=== PATIENT | male | born 1990 | race Caucasian/White ===

== ENCOUNTER 2020-02-07 17:34 | Emergency (ER) | payer BC, SELFPAY ==
[2020-02-07 17:41] VITALS: BP 128/72; PULSE 81; RESP 18; TEMP 37.2; O2SAT 99
--- NOTE | 2020-02-07 17:51 | ED.SKABFB ---
HPI - Skin/Abscess/Foreign Bdy General Chief complaint: Skin/Abscess/Foreign Body Stated complaint: yellow jacket stings reaction neck Time Seen by Provider: 02/07/20 17:55 Source: patient and RN notes reviewed Mode of arrival: ambulatory Limitations: no limitations History of Present Illness HPI narrative: 29-year-old male presents with concern for wasp sting. Reports 2 stings on his scalp, and a sting on the front side of his neck. Reports he took 2 Benadryl prior to arrival, reports he generally has a lot of swelling when he gets done. He denies any history of anaphylactic reaction to stings. Denies current wheezing, difficulty breathing, swollen lips, swollen tongue, nausea, vomiting, diarrhea, fever MD complaint: insect bite/sting Related Data Home Medications Medication Instructions Recorded Confirmed No Home Medications 02/07/20 02/07/20 Allergies Allergy/AdvReac Type Severity Reaction Status Date / Time No Known Allergies Allergy Verified 02/07/20 17:55 Review of Systems Review of Systems: Narrative: CONSTITUTIONAL: Denies malaise, chills, sweats, or fever. EYES: Denies visual changes, redness, or discharge. ENT: Denies swollen lips, swollen tongue, difficulty swallowing CARDIOVASCULAR: Denies chest pain, palpitations, or edema. RESPIRATORY: Denies cough or dyspnea. GASTROINTESTINAL: Denies abdominal pain, nausea, vomiting, diarrhea SKIN: Reports insect sting on the front of his neck and 2 on his scalp All systems reviewed & are unremarkable except as noted in HPI and below PMFSH Comments At time of signature, agree with nursing past medical, surgical, social and family history. There is no relevant family history pertinent to the presenting complaint Exam Narrative: Exam Narrative: GENERAL: Well-appearing, well-nourished, and in no acute distress. HEAD: Normocephalic, atraumatic. EYES: PERRLA, conjunctivae clear ENT: Nares clear. Mucous membranes moist. Oropharynx without edema, erythema or lesions. Tonsils not enlarged and without exudate. NECK: Supple. 3 cm area of erythema, mild superficial edema noted to the anterior neck, no stinger noted CHEST: No respiratory distress. Clear to auscultation. No bony deformities, no asymmetry. Speaks in full sentences. HEART: Regular rate and rhythm. No murmur heard. SKIN: Warm, dry, no rash. NEURO: Alert and oriented x3. PSYCH: Normal mood and affect Course Course Emergency Course: Patient is aware of diagnosis, understands and agrees to treatment plan. Anticipatory guidance given. Patient agrees to follow-up as directed and is aware of reasons to seek care at the emergency department. Portions of this record may have been created with voice recognition software Vital Signs Vital signs: Vital Signs Temperature 98.9 F 02/07/20 17:41 Pulse Rate 81 02/07/20 17:41 Respiratory Rate 18 02/07/20 17:41 Blood Pressure 128/72 02/07/20 17:41 Pulse Oximetry 99 02/07/20 17:41 Temperature 98.9 F 02/07/20 17:41 Pulse Rate 81 02/07/20 17:41 Respiratory Rate 18 02/07/20 17:41 Blood Pressure 128/72 02/07/20 17:41 Pulse Oximetry 99 02/07/20 17:41 Reviewed. MDM - Skin/Abscess/Foreign Bdy MDM Narrative Medical decision making narrative: Exam findings show no acute concerns or changes; patient is non-toxic appearing and is in no distress. Patient is appropriate for outpatient treatment and follow-up. Differential Diagnosis Differential diagnosis: Likely abscess of skin or subcutaneous tissue, cellulitis and insect bites Critical Care Time Critical Care Time Critical Care Time: No Discharge Plan Discharge Clinical Impression: Insect sting Qualifiers: Encounter type: initial encounter Injury intent: undetermined intent Qualified Code(s): T63.484A - Toxic effect of venom of other arthropod, undetermined, initial encounter Patient Disposition: Home, Self-Care Condition: Stable Instructions: Insect Bite or Sting (ED) A
[2020-02-07] MEDS: methylPREDNISolone SOD SUCC 125 MG VIAL IM (18:12)
== END 2020-02-07 18:35 | disposition home or self-care (01) ==
PROVIDERS: Emergency Provider Nurse Practitioner
DX: T63.461A Toxic effect of venom of wasps, accidental (unintentional), initial encounter (principal)
CPT/HCPCS: 96372; 99213; G0463; J2930